=== PATIENT | female | born 1940 | race Caucasian/White ===

== ENCOUNTER → 2017-07-07 | Outpatient (CLI) | payer MEDICARE, OTHER ==
[2017-07-07 08:23] LABS: ALBUMIN 3.7 g/dL (3.4-5.0); ALBUMIN/GLOBULIN RATIO 1.2 (1.0-1.7); CALCIUM 8.7 mg/dL (8.5-10.1); CREATININE 0.8 mg/dL (0.6-1.0); GFR 69.4; POTASSIUM 4.6 mmol/L (3.5-5.1); TOTAL BILIRUBIN 0.5 mg/dL (0.2-1.0); TOTAL PROTEIN 6.9 g/dL (6.4-8.2)
[2017-07-08 01:07] LABS: HEMOGLOBIN A1C 5.4 % (4.8-5.6)
== END | disposition home or self-care (01) ==
LOC: SPEC 07:53
PROVIDERS: ATTEND Internal Medicine
DX: K30 Functional dyspepsia (principal); E63.9 Nutritional deficiency, unspecified
CPT/HCPCS: 36415; 80053; 83036

== ENCOUNTER → 2020-02-08 | Outpatient (CLI) | payer MEDICARE, OTHER ==
--- NOTE | 2020-02-08 16:14 | RAD ---
ANKLE LEFT 3V 02/08/2020 12:00 AM INDICATION: Fall COMPARISON: None available. TECHNIQUE: 3 views of the left ankle are provided. FINDINGS/ IMPRESSION: Mild soft tissue swelling is noted around the ankle. Tibial plafond and talar dome are intact. No acute fracture or dislocation is identified. No subcutaneous gas or osseous erosion. No radiopaque foreign density. Electronically signed by: Anjelica Castellano MD (02/08/2020 4:10 PM) [id number]
== END | disposition home or self-care (01) ==
LOC: DXRAD 10:11
PROVIDERS: ATTEND Internal Medicine
DX: M25.572 Pain in left ankle and joints of left foot (principal)
CPT/HCPCS: 73610